=== PATIENT | female | born 1995 | race Two or more races ===

== ENCOUNTER 2019-07-28 11:05 | Emergency (ER) | payer MEDICAID ==
[~2019-07-28] VITALS: Ht 149.9 cm; Wt 77.3 kg
[2019-07-28 11:25] VITALS: BP 133/90
[2019-07-28] MEDS ORDERED: orphenadrine citrate 60mg/2ml inj. IM ONE (12:40)
[2019-07-28] MEDS ORDERED: ketorolac tromethamine 15mg/ml inj. IM ONE (12:40)
[2019-07-28] MEDS ORDERED: IBUP-1985 PO (12:41)
[2019-07-28] MEDS ORDERED: METH-360 PO (12:41)
== END 2019-07-28 12:56 | disposition home or self-care (01) ==
LOC: ER 11:06
DX: S29.019A Strain of muscle and tendon of unspecified wall of thorax, initial encounter (principal); Z79.899 Other long term (current) drug therapy; W17.89XA Other fall from one level to another, initial encounter; Y93.89 Activity, other specified; Y92.89 Other specified places as the place of occurrence of the external cause; Y99.8 Other external cause status
CPT/HCPCS: 96372; 99284; J1885; J2360

== ENCOUNTER 2022-03-01 20:04 | Emergency (ER) | payer MEDICAID ==
[~2022-03-01] VITALS: Ht 147.3 cm; Wt 69.2 kg
[~2022-03-01 20:04] MED LIST: IBUP-1985 PO; METH-360 PO
[2022-03-01 23:24] VITALS: BP 130/78
== END 2022-03-01 23:27 | disposition home or self-care (01) ==
LOC: ER 20:04
DX: M25.461 Effusion, right knee (principal); M25.561 Pain in right knee; Z79.899 Other long term (current) drug therapy
CPT/HCPCS: 99282